=== PATIENT | female | born 1990 | race Caucasian/White ===

== ENCOUNTER → 2019-12-08 15:35 | Outpatient (POV) | payer BC, SELFPAY | PROVIDERS: Visit Provider Dermatology | DX: Z00.00 Encounter for general adult medical examination without abnormal findings (principal) ==

== ENCOUNTER → 2020-08-18 13:02 | Outpatient (CLI) | payer BC, SELFPAY | PROVIDERS: PCP Family Medicine; Visit Provider Family Medicine | DX: G47.30 Sleep apnea, unspecified (principal); R40.0 Somnolence; R06.83 Snoring; E66.9 Obesity, unspecified | CPT/HCPCS: G0399 ==

== ENCOUNTER → 2020-10-06 12:33 | Outpatient (CLI) | payer BC, SELFPAY | PROVIDERS: Visit Provider Specialist | DX: G47.10 Hypersomnia, unspecified (principal) | CPT/HCPCS: 36415 ==

== ENCOUNTER → 2020-10-17 14:33 | Outpatient (CLI) | payer BC, SELFPAY | PROVIDERS: Visit Provider Specialist | DX: Z01.812 Encounter for preprocedural laboratory examination (principal); Z11.52 Encounter for screening for COVID-19 | CPT/HCPCS: U0003 ==

== ENCOUNTER → 2020-10-18 20:25 | Outpatient (CLI) | payer BC, SELFPAY | PROVIDERS: PCP Family Medicine; Visit Provider Specialist | DX: R06.83 Snoring (principal) ==

== ENCOUNTER → 2020-10-31 20:10 | Outpatient (CLI) | payer BC, SELFPAY | PROVIDERS: PCP Family Medicine; Visit Provider Specialist | DX: R06.83 Snoring (principal); G47.9 Sleep disorder, unspecified | CPT/HCPCS: 95810 ==

== ENCOUNTER → 2021-07-11 14:04 | Outpatient (CLI) | payer BC, SELFPAY ==
[2021-07-11 15:03] LABS: Basophils # 0.2 K/mm3 (0-0.2); Basophils % 2.5 % (0.1-2.0); Eosinophils % 0.3 % (0.1-12.0); Hemoglobin 13.8 g/dL (12.2-16.2); Lymphocytes # 4.4 K/mm3 (0.7-4.5); Lymphocytes % 50.6 % (10-50); Mean Corpuscular HGB Conc 32.2 g/dL (31.8-35.4); Mean Corpuscular Hemoglobin 28.7 pg (27.0-31.2); Mean Corpuscular Volume 89.1 fl (81-99); Mean Platelet Volume 9.9 fl (7.4-10.4); Monocytes # 0.4 K/mm3 (0.1-1.0); Neutrophils # 3.7 K/mm3 (1.8-7.8); Neutrophils % 41.6 % (37.0-80.0); Platelet Count 241 K/mm3 (142-424); Red Blood Count 4.83 M/mm3 (4.20-5.40); Red Cell Distribution Width 14.1 % (11.5-17.5); White Blood Count 8.8 K/mm3 (4.8-10.8)
[2021-07-11 15:07] LABS: MANUAL DIFFERENTIAL MANUAL DIFFERENTIAL (MANUAL DIFF)
[2021-07-11 16:30] LABS: Strep Scrn Group A (Rapid) Negative (Negative)
[2021-07-11 16:48] LABS: Lymphocytes % 46 % (10-50); Monocytes % 4 % (2-9); Neutrophils % 47 % (42-76); Platelet Estimate Normal; RBC Morphology Normal; Total Cells Counted 100
== END ==
PROVIDERS: PCP Family Medicine; Visit Provider Family Medicine
DX: J02.9 Acute pharyngitis, unspecified (principal)
CPT/HCPCS: 36415; 85007; 85025; 87430

== ENCOUNTER → 2022-12-27 11:13 | Outpatient (CLI) | payer BC, SELFPAY ==
[2022-12-27 11:23] LABS: MANUAL DIFFERENTIAL MANUAL DIFFERENTIAL (MANUAL DIFF)
[2022-12-27 11:46] LABS: Basophils # 0.1 K/mm3 (0-0.2); Basophils % 0.9 % (0.1-2.0); Eosinophils # 0.1 K/mm3 (0.0-0.4); Eosinophils % 1.8 % (0.1-12.0); Hematocrit 45.2 % (37.0-47.0); Hemoglobin 14.3 g/dL (12.2-16.2); Lymphocytes # 1.6 K/mm3 (0.7-4.5); Lymphocytes % 28.6 % (10-50); Mean Corpuscular HGB Conc 31.6 g/dL (31.8-35.4); Mean Corpuscular Hemoglobin 28.5 pg (27.0-31.2); Mean Corpuscular Volume 90.2 fl (81-99); Mean Platelet Volume 9.2 fl (7.4-10.4); Monocytes # 0.3 K/mm3 (0.1-1.0); Monocytes % 5.7 % (1.7-9.3); Neutrophils # 3.5 K/mm3 (1.8-7.8); Platelet Count 257 K/mm3 (142-424); Red Blood Count 5.02 M/mm3 (4.20-5.40); Red Cell Distribution Width 14.1 % (11.5-17.5); White Blood Count 5.5 K/mm3 (4.8-10.8)
[2022-12-27 11:55] LABS: Lymphocytes % 33 % (10-50); Monocytes % 5 % (2-9); Neutrophils % 62 % (42-76); Total Cells Counted 100
[2022-12-27 11:56] LABS: Platelet Estimate Normal; RBC Morphology Normal
[2022-12-27 12:28] LABS: Alanine Aminotransferase 33 U/L (12-78); Albumin Level 4.3 g/dl (3.5-5.0); Albumin/Globulin Ratio 1.5 (1.1-1.8); Alkaline Phosphatase 97 U/L (38-126); Anion Gap 12.4 mEq/L (5-15); Aspartate Amino Transferase 33 U/L (14-36); Bilirubin,Total 0.6 mg/dl (0.2-1.3); Blood Urea Nitrogen 15 mg/dl (7-17); Calcium 9.2 mg/dl (8.4-10.2); Carbon Dioxide 29 mmol/L (22.0-30.0); Chloride 102 mmol/L (98-107); Estimated Glomerular Filt Rate 84 ml/min (>60); GFR (African American) 102 ML/MIN (>60); Globulin 2.8 g/dL (1.3-3.2); Glucose 97 mg/dl (74-100); Potassium 4.4 mmoL/L (3.5-5.1); Sodium 139 mmol/L (136-145); Total Protein,Serum 7.1 g/dl (6.3-8.2)
[2022-12-27 12:46] LABS: Free Thyroxine Index 2.7 ug/dL (5.93-13.13); T4 (Thyroxine) 8.7 ug/dl (5.53-11.0); Triiodothryronine (T3) Uptake 31 % (23.5-40.5)
[2022-12-27 13:00] LABS: Thyroid Stimulating Hormone 2.63 uIU/mL (0.465-4.68)
[2022-12-27 13:34] LABS: Vitamin B12 465 pg/mL (239-931)
[2023-01-02 23:17] LABS: 1,25 Dihydroxy Vitamin D 86 pg/mL (.); 1,25-Dihydroxy, Vitamin D-2 <10 pg/mL (.); 1,25-Dihydroxy, Vitamin D-3 83 pg/mL (.)
== END ==
PROVIDERS: PCP Family Medicine; Visit Provider Nurse Practitioner Family
DX: G47.11 Idiopathic hypersomnia with long sleep time (principal); E66.9 Obesity, unspecified; E67.3 Hypervitaminosis D; Z68.42 Body mass index [BMI] 45.0-49.9, adult
CPT/HCPCS: 36415; 80053; 82607; 82652; 82746; 84436; 84443; 84479; 85007; 85014; 85018; 85048; 85049

== ENCOUNTER 2024-04-17 11:57 | Emergency (ER) | payer BC, SELFPAY ==
[2024-04-17 13:27] LABS: Apearance,Urine Cloudy (Clear); Color,Urine Dark Yellow (Yellow); UTC Pregnancy Test, Urine Negative (Negative)
[2024-04-17 13:28] LABS: Bilirubin,Urine Negative (Negative); Blood, Urine 3+ (Negative); Glucose,Urine (UA) Negative (Negative); Ketones,Urine Negative (Negative); PH,Urine 5.5 (5.0-8.5); Protein,Urine 1+ (Negative); Specific Gravity, Urine 1.025 (1.005-1.030); UTC Leukocyte Esterase,Urine 3+ (Negative); UTC Nitrate,Urine Positive (Negative); Urobilinogen,Urine 0.2 EU/dl (0.2)
[2024-04-17 13:58] VITALS: BP 149/56; PULSE 79; RESP 18; TEMP 36.9; O2SAT 100; BMI 48.2
--- NOTE | 2024-04-17 14:03 | EXP.UTC ---
Discharge Plan Disposition Patient Disposition: Home, Self-Care Condition: Good Prescriptions Prescriptions: New cefdinir 300 mg capsule 300 mg PO BID Qty: 20 0RF phenazopyridine [Pyridium] 200 mg tablet 200 mg PO Q8H 2 Days Qty: 6 0RF No Action sertraline 100 mg tablet 100 mg PO DAILY Patient Comments: TAKE 1 TABLET BY MOUTH ONCE DAILY cholecalciferol (vitamin D3) 250 mcg (10,000 unit) capsule 250 mcg PO WEEKLY modafinil [Provigil] 200 mg tablet 200 mg PO QAM 30 Days Qty: 30 5RF Rx Instructions: controlled substance, will continue 30 day supply only Referrals Follow up/Referrals: Juan Luis Vallejo MD [Primary Care Provider] - See instructions Activity Restrictions/Add. Instructions Additional Instructions/Restrictions: *Increase fluids. Water not Soda or Tea *Start antibiotic immediately and be sure to take as ordered for the FULL length of time although you should start to see improvement over the next 48 hours *Pyridium as needed Remember this medication will turn your urine . This is normal but it will stain what ever it gets on *You should not use Pyridium for more than 48 hours. If so , follow up with your primary physician to review urine culture and ensure that antibiotic is adequate for infection *Be SURE to follow up anytime for new or worsening symptoms with your family doctor. AND in 48 hours for urine culture results with your family doctor, if you do not have a doctor then you may call back to the [facility] for urine culture results and further treatment. We do recommend that you choose and establish care with a Primary Care Physician. ?AND follow up with them ?in 10-14 days to repeat UA to ensure infection is resolved and blood no longer present *Be sure to let your PCP know that we sent urine cultures from the [facility] so they can follow up to ensure that you area the on the correct antibiotic Call your doctor office and make appointment for 48 hours (2 days from today) ?to follow up and get the results of your urine culture and further treatment Clinical Impressions Clinical Impression: UTI (urinary tract infection) Qualifiers: Urinary tract infection type: site unspecified Hematuria presence: with hematuria Qualified Code(s): N39.0 - Urinary tract infection, site not specified Instructions Patient Instructions: DI for Urinary Tract Infection (UTI), Cefdinir Print Language Print Language: Bulgarian Discharge ED Provider: Michelle Sánchez [facility] HPI General Stated complaint: frequent, painful urination Mode of Arrival: Ambulatory Source of Information: Patient Limitations: No Limitations Time Seen by Provider: 04/17/24 14:06 Description of Symptoms (Recalled from Triage Doc. by RN): PATIENT C/O STOMACH PAIN, BACK PAIN, AND FREQUENT URINATION THAT STARTED YESTERDAY MORNING HEENT Symptoms (Recalled from RN notes): No Resp Symptoms (Recalled from RN notes): No Skin Symptoms (Recalled from RN notes): No MS Symptoms (Recalled from RN notes): No Functional Status (Recalled from RN notes): WNL History of Present Illness Provider Complaint: Patient state that she has been having pressure like pain in her lower abdomen like she has to urinate frequently States that she is achy in her back and having urgency and frequency and some discomfort with urination denies N/V Denies fever States that has pressure like pain not sharp pain in her lower abdomen Denies hx of kidney stones Related Data Home Medications ?Medication ?Instructions ?Recorded ?Confirmed sertraline 100 mg tablet 100 mg PO DAILY 06/21/21 04/17/24 cholecalciferol (vitamin D3) 250 250 mcg PO WEEKLY 07/08/23 04/17/24 mcg (10,000 unit) capsule Previous Rx's ?Medication ?Instructions ?Recorded modafinil 200 mg tablet (Provigil) 200 mg PO QAM narcolepsy like 12/27/23 symptoms 30 days #30 tabs cefdinir 300 mg capsule 300 mg PO BID #20 caps 04/17/24 phenazopyridine 200 mg tablet 200 mg PO Q8H pain 2 days #6 tabs 04/17/24 (Pyridium) Allergies Allergy/AdvReac Type Severity Reaction Status Date / Time No Known Allergies Allergy Verified 12/27/23 08:10 Worker's Comp Is this a Worker's Comp case?: No [facility] Disclaimer: The information contained in this section may have been updated after the patient was seen, as this information can be updated by other users. 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 PSG did not show evidence of significant FRANCESCA, there was evidence of prolonged sleep latency over 60 minutes, REM sleep was not observed. Denies any intolerance or side effects to modafinil. MSLT was not available at time of diagnosis and patient is not interested at this time given that symptoms improved with modafinil. Mood disorder History of both anxiety and depression, on Zoloft, managed by PCP Family History Other Diabetes Hypertension Social History Smoking Status: Current every day smoker tobacco type: e-cigarettes alcohol intake: never substance use type: denies use current occupational status: employed and unemployed Travel in the last 8 weeks: None household members: spouse and children housing: house marital status: number of children: 2 Have you lived/traveled outside [place] in past 30 days?: No Contact w/someone who lives/traveled outside [place] past 30 days?: No Exposure to someone with infectious disease in past 14 days?: No Do you have a fever (greater than 100.4 F or 38 C)?: No Have you tested positive for COVID-19: No Exposed to someone with COVID-19 in past 14 days?: No Do you have a sore throat?: No Do you have a cough?: No Do you have any weakness?: No Do you have any diarrhea?: No Are you experiencing any unusual bleeding?: No Do you have any muscle aches/pain?: No Do you have any abdominal pain?: No Are you experiencing loss of taste or smell?: No ROS Obtained: Yes All systems reviewed & no additional complaints except as documented and Yes Systems reviewed as appropriate & no additional complaints except as documented Constitutional Constitutional: Reports system reviewed and no additional complaints, except as documented, Reports as per HPI, Denies body ache, Denies chills and Denies fever(s) ENT Ears, Nose, Mouth, and Throat: Reports system reviewed and no additional complaints, except as documented and Reports as per HPI Cardiovascular Cardiovascular: Reports system reviewed and no additional complaints, except as documented and Reports as per HPI Respiratory Respiratory: Reports system reviewed and no additional complaints, except as documented and Reports as per HPI Gastrointestinal Gastrointestingal: Reports system reviewed and no additional complaints, except as documented, as per HPI and cramping (reports crampy pressure like pain in lower abdomen when she has to urinate); Denies nausea or vomiting Genitourinary Female Genitourinary: Reports system reviewed and no additional complaints, except as documented, Reports as per HPI, Reports dysuria, Reports urinary frequency and Reports urinary urgency Musculoskeletal Musculoskeletal: Reports system reviewed and no additional complaints, except as documented and Reports as per HPI Physical Exam General General appearance: alert and in no apparent distress ENT ENT exam: Present normal exam, normal oropharynx, mucous membranes moist and TM's normal bilaterally Respiratory Respiratory exam: Present normal lung sounds bilaterally; Absent respiratory distress or wheezes Cardiovascular Cardiovascular exam: Present regular rate, normal rhythm and normal heart sounds Abdominal Exam Abdominal exam: Present soft and normal bowel sounds; Absent distention, tenderness, guarding or rebound Back Exam Back exam: Present normal inspection; Absent tenderness, CVA tenderness (R), CVA tenderness (L) or muscle spasm Neurological Exam Neurological exam: Present alert, oriented X3 and normal gait Medical Decision Making Medical Records Screening: Per USPSTF and CDC recommendations, given the prevalence of disease in our region, it is our hospital?s policy to screen for HIV and viral Hepatitis for all patients aged 18 and over and those with ongoing risk factors. Simón Inquiry Pt receiving controlled substance: No Simón was queried for this patient: No Vital Signs: 04/17/24 13:58 Temperature 98.4 F Temperature Source Oral Pulse Rate [Left Brachial] 79 Respiratory Rate 18 Blood Pressure [Left Arm] 149/56 H Blood Pressure Mean [Left Arm] 87 Blood Pressure Source [Left Arm] Automatic Cuff Blood Pressure Position [Left Arm] Sitting 02 Sat by Pulse Oximetry 100 Oxygen Delivery Method Room Air Lab Data Lab results reviewed: Yes I reviewed the patient's lab results. Lab Results 04/17/24 12:06: Urine Color Dark yellow, Urine Appearance Cloudy, Urine pH 5.5, Ur Specific [place] 1.025, Urine Protein 1+, Urine Glucose (UA) Negative, Urine Ketones Negative, Urine Blood 3+, Urine Nitrate Positive A, Urine Bilirubin Negative, Urine Urobilinogen 0.2, Ur Leukocyte Esterase 3+ A, Tst Clinic Negative Orders (Tests/Meds): ORDERS Category Date Time Status Urine Culture Stat Micro 04/17/24 12:06 Received
[2024-04-17 14:12] VITALS: BP 149/56; PULSE 79; RESP 18; TEMP 36.9; O2SAT 100
--- NOTE | 2024-04-20 08:42 | PC.NURSE ---
PATIENT'S URINE CULTURE REVIEWED BY Joaquin NARVAEZ APRN, NO CHANGES NEEDED AT THIS TIME
== END 2024-04-17 14:14 | disposition home or self-care (01) ==
PROVIDERS: Emergency Provider Nurse Practitioner; PCP Family Medicine
DX: N39.0 Urinary tract infection, site not specified (principal)
CPT/HCPCS: 81003; 81025; 87086; 87088; 87186; 99213; G0381

== ENCOUNTER 2024-05-02 16:27 | Emergency (ER) | payer BC, SELFPAY ==
[2024-05-02 16:38] VITALS: BP 132/56; PULSE 73; RESP 18; TEMP 36.7; O2SAT 100; BMI 48.9
--- NOTE | 2024-05-02 16:38 | EXP.UTC ---
Discharge Plan Disposition Patient Disposition: Home, Self-Care Condition: Good Prescriptions Prescriptions: New nitrofurantoin monohyd/m-cryst [Macrobid] 100 mg capsule 100 mg PO Q12H 7 Days Qty: 14 0RF Rx Instructions: must administer with a meal/food No Action sertraline 100 mg tablet 100 mg PO DAILY Patient Comments: TAKE 1 TABLET BY MOUTH ONCE DAILY modafinil [Provigil] 200 mg tablet 200 mg PO QAM 30 Days Qty: 30 5RF Rx Instructions: controlled substance, will continue 30 day supply only Referrals Follow up/Referrals: Juan Luis Vallejo MD [Primary Care Provider] - See instructions Activity Restrictions/Add. Instructions Additional Instructions/Restrictions: Take medication as prescribed. Increase fluids. Follow up with primary care provider. Clinical Impressions Clinical Impression: UTI (urinary tract infection) Qualifiers: Urinary tract infection type: site unspecified Hematuria presence: with hematuria Qualified Code(s): N39.0 - Urinary tract infection, site not specified Instructions Patient Instructions: DI for Urinary Tract Infection (UTI) Print Language Print Language: Yoruba Discharge ED Provider: Anisa Ndiaye [facility] General Stated complaint: poss UTI Time Seen by Provider: 05/02/24 16:38 Description of Symptoms (Recalled from Triage Doc. by RN): Pt reports that she was seen on 04/17/24 for a UTI and treated with Cefdinir. She reports that shortly after finishing her antibiotics she felt as if she was developing another UTI. She reports a lot of pressure over her bladder. Related Data Home Medications ?Medication ?Instructions ?Recorded ?Confirmed sertraline 100 mg tablet 100 mg PO DAILY 06/21/21 05/02/24 Previous Rx's ?Medication ?Instructions ?Recorded modafinil 200 mg tablet (Provigil) 200 mg PO QAM narcolepsy like 12/27/23 symptoms 30 days #30 tabs nitrofurantoin 100 mg PO Q12H 7 days #14 caps 05/02/24 monohydrate/macrocrystals 100 mg capsule (Macrobid) Allergies Allergy/AdvReac Type Severity Reaction Status Date / Time No Known Allergies Allergy Verified 12/27/23 08:10 [facility] Disclaimer: The information contained in this section may have been updated after the patient was seen, as this information can be updated by other users. 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 PSG did not show evidence of significant FRANCESCA, there was evidence of prolonged sleep latency over 60 minutes, REM sleep was not observed. Denies any intolerance or side effects to modafinil. MSLT was not available at time of diagnosis and patient is not interested at this time given that symptoms improved with modafinil. Mood disorder History of both anxiety and depression, on Zoloft, managed by PCP Family History Other Diabetes Hypertension Social History Smoking Status: Current every day smoker tobacco type: e-cigarettes alcohol intake: never substance use type: denies use current occupational status: employed and unemployed Travel in the last 8 weeks: None household members: spouse and children housing: house marital status: number of children: 2 Have you lived/traveled outside US in past 30 days?: No Contact w/someone who lives/traveled outside [place] past 30 days?: No Exposure to someone with infectious disease in past 14 days?: No Do you have a fever (greater than 100.4 F or 38 C)?: No Have you tested positive for COVID-19: No Exposed to someone with COVID-19 in past 14 days?: No Do you have a sore throat?: No Do you have a cough?: No Do you have any weakness?: No Do you have any diarrhea?: No Are you experiencing any unusual bleeding?: No Do you have any muscle aches/pain?: No Do you have any abdominal pain?: No Are you experiencing loss of taste or smell?: No ROS Obtained: Yes All systems reviewed & no additional complaints except as documented Constitutional Constitutional: Reports system reviewed and no additional complaints, except as documented Eyes Eyes: Reports system reviewed and no additional complaints, except as documented ENT Ears, Nose, Mouth, and Throat: Reports system reviewed and no additional complaints, except as documented Cardiovascular Cardiovascular: Reports system reviewed and no additional complaints, except as documented Respiratory Respiratory: Reports system reviewed and no additional complaints, except as documented Gastrointestinal Gastrointestingal: Reports system reviewed and no additional complaints, except as documented Genitourinary Female Genitourinary: Reports system reviewed and no additional complaints, except as documented and Reports pelvic pain Musculoskeletal Musculoskeletal: Reports system reviewed and no additional complaints, except as documented Integumentary/Breasts Skin/Breast: Reports system reviewed and no additional complaints, except as documented Neurologic Neurologic: Reports system reviewed and no additional complaints, except as documented Endocrine Endocrine: Reports system reviewed and no additional complaints, except as documented Hematologic/Lymphatic Henatologic/Lymphatic: Reports system reviewed and no additional complaints, except as documented Allergic/Immunologic Allergic/Immunologic: Reports system reviewed and no additional complaints, except as documented Physical Exam General General appearance: alert and in no apparent distress Head Head exam: atraumatic and normocephalic Eye Eye exam: Present normal appearance ENT ENT exam: Present normal exam Neck Neck exam: Present normal inspection Chest Chest inspection: Present normal inspection and symmetric chest wall rise Respiratory Respiratory exam: Present normal lung sounds bilaterally Cardiovascular Cardiovascular exam: Present regular rate and normal rhythm Abdominal Exam Abdominal exam: Present soft, tenderness and normal bowel sounds; Absent distention Abdominal tenderness: Present suprapubic and mild Extremities Exam Extremities exam: Present normal inspection Back Exam Back exam: Present normal inspection; Absent CVA tenderness (R) or CVA tenderness (L) Neurological Exam Neurological exam: Present alert and oriented X3 Psychiatric Psychiatric exam: Present normal affect and normal mood Skin Skin exam: Present warm, dry and intact Lymphatic Lymphatic Findings: no adenopathy Medical Decision Making Medical Records Screening: Per USPSTF and CDC recommendations, given the prevalence of disease in our region, it is our hospital?s policy to screen for HIV and viral Hepatitis for all patients aged 18 and over and those with ongoing risk factors. Simón Inquiry Pt receiving controlled substance: No Simón was queried for this patient: No
[2024-05-02 16:48] LABS: Apearance,Urine Cloudy (Clear); Color,Urine Yellow (Yellow)
[2024-05-02 16:49] LABS: Bilirubin,Urine Negative (Negative); Blood, Urine Trace (Negative); Glucose,Urine (UA) Negative (Negative); Ketones,Urine Negative (Negative); PH,Urine 5.5 (5.0-8.5); Protein,Urine Negative (Negative); UTC Leukocyte Esterase,Urine 3+ (Negative); UTC Nitrate,Urine Negative (Negative); Urobilinogen,Urine 0.2 EU/dl (0.2)
[2024-05-02 17:01] VITALS: BP 132/56; PULSE 73; RESP 18; TEMP 36.7
--- NOTE | 2024-05-04 09:34 | PC.NURSE ---
URINE CULTURE REVIEWED BY Joaquin NARVAEZ APRN, NO CHANGES NEEDED AT THIS TIME
== END 2024-05-02 17:04 | disposition home or self-care (01) ==
PROVIDERS: Emergency Provider Nurse Practitioner Family; PCP Family Medicine
DX: N39.0 Urinary tract infection, site not specified (principal)
CPT/HCPCS: 81003; 87086; 87088; 87186; 99213; G0381